=== PATIENT | male | born 1945 | race Caucasian/White ===

== ENCOUNTER 2016-10-06 10:47 | Outpatient (CLI) | payer MEDICARE | END 2016-10-06 10:48 | disposition home or self-care (01) | DX: E78.5 Hyperlipidemia, unspecified (principal); I10 Essential (primary) hypertension; Z79.899 Other long term (current) drug therapy; D64.9 Anemia, unspecified ==

== ENCOUNTER 2017-10-20 08:40 | Outpatient (CLI) | payer MEDICARE ==
[2017-10-20 12:39] LABS: BASOPHILS % (AUTO) 0.3 %; EOSINOPHILS # (AUTO) 0.1 10^3/uL (0.0-0.7); EOSINOPHILS % (AUTO) 2.1 %; HGB - HEMOGLOBIN 13.2 g/dL (14.0-18.0); LYMPHOCYTES # (AUTO) 1.4 10^3/uL (1.5-3.5); LYMPHOCYTES % (AUTO) 30.5 %; MEAN CORPUSCULAR HEMOGLOBIN 31.8 pg (27.0-31.0); MEAN CORPUSCULAR HGB CONC 33.7 g/dL (32.0-36.0); MEAN CORPUSCULAR VOLUME 94.1 fL (80.0-94.0); MEAN PLATELET VOLUME 8.4 fL (7.4-11.4); MONOCYTES # (AUTO) 0.5 10^3/uL (0.0-1.0); MONOCYTES % (AUTO) 11.8 %; NEUTROPHILS # (AUTO) 2.5 10^3/uL (1.5-6.6); NEUTROPHILS % (AUTO) 55.3 %; PLT - PLATELET COUNT 202 10^3/uL (130-450); RED BLOOD COUNT 4.16 10^6/uL (4.70-6.10); RED CELL DISTRIBUTION WIDTH 13.7 % (12.0-15.0); WHITE BLOOD COUNT 4.5 x10^3/uL (4.8-10.8)
[2017-10-20 12:47] LABS: HB2 TOTAL 14.1 g/dL; HEMOGLOBIN A1C 0.53 g/dL; HEMOGLOBIN A1C % 5.6 % (4.6-6.2)
[2017-10-20 12:52] LABS: ALBUMIN 4.4 g/dL (3.2-5.5); ALBUMIN/GLOBULIN RATIO 1.8 (1.0-2.2); ALKALINE PHOSPHATASE 52 IU/L (42-121); ALT ALANINE AMINOTRANSFERASE 21 IU/L (10-60); AST ASPARTATE AMINOTRANSFERASE 25 IU/L (10-42); BILIRUBIN,TOTAL 0.8 mg/dL (0.2-1.0); BUN - BLOOD UREA NITROGEN 34 mg/dL (6-20); CALCIUM 8.8 mg/dL (8.5-10.3); CARBON DIOXIDE - CO2 28 mmol/L (21-32); CHLORIDE 102 mmol/L (101-111); CHOL/HDL RATIO 3.1 (<5.0); CHOLESTEROL 175 mg/dL; CREATININE 0.8 mg/dL (0.6-1.2); GFR - MDRD 96 (>89); GLUCOSE 102 mg/dL (70-100); HDL CHOLESTEROL 57 mg/dL; LDL CHOLESTEROL,CALCULATED 108 mg/dL; LDL/HDL RATIO 1.9 (<3.6); SODIUM 140 mmol/L (135-145); TOTAL PROTEIN 6.9 g/dL (6.7-8.2); VLDL CHOLESTEROL 10 mg/dL
== END 2017-10-20 08:41 | disposition home or self-care (01) ==
LOC: LAB.N 08:40
PROVIDERS: ATTEND Internal Medicine
DX: D64.9 Anemia, unspecified (principal); I10 Essential (primary) hypertension; E78.5 Hyperlipidemia, unspecified; R73.01 Impaired fasting glucose; Z12.5 Encounter for screening for malignant neoplasm of prostate
CPT/HCPCS: 36415; 80053; 80061; 83036; 85025; G0103; 83721; 84153

== ENCOUNTER 2018-11-03 08:00 | Outpatient (CLI) | payer MEDICARE ==
[2018-11-03 13:23] LABS: BASOPHILS % (AUTO) 0.4 %; EOSINOPHILS # (AUTO) 0.1 10^3/uL (0.0-0.7); EOSINOPHILS % (AUTO) 1.2 %; LYMPHOCYTES % (AUTO) 25.5 %; MEAN CORPUSCULAR HEMOGLOBIN 31.5 pg (27.0-31.0); MEAN CORPUSCULAR HGB CONC 33.7 g/dL (32.0-36.0); MEAN CORPUSCULAR VOLUME 93.4 fL (80.0-94.0); MEAN PLATELET VOLUME 8.1 fL (7.4-11.4); MONOCYTES # (AUTO) 0.7 10^3/uL (0.0-1.0); MONOCYTES % (AUTO) 17.1 %; NEUTROPHILS # (AUTO) 2.3 10^3/uL (1.5-6.6); NEUTROPHILS % (AUTO) 55.8 %; PLT - PLATELET COUNT 196 10^3/uL (130-450); RED BLOOD COUNT 4.44 10^6/uL (4.70-6.10); RED CELL DISTRIBUTION WIDTH 13.2 % (12.0-15.0); WHITE BLOOD COUNT 4.1 x10^3/uL (4.8-10.8)
[2018-11-03 13:51] LABS: ALBUMIN 4.6 g/dL (3.2-5.5); ALBUMIN/GLOBULIN RATIO 1.6 (1.0-2.2); ALKALINE PHOSPHATASE 61 IU/L (42-121); ALT ALANINE AMINOTRANSFERASE 21 IU/L (10-60); AST ASPARTATE AMINOTRANSFERASE 26 IU/L (10-42); BUN - BLOOD UREA NITROGEN 21 mg/dL (6-20); CALCIUM 9.3 mg/dL (8.5-10.3); CARBON DIOXIDE - CO2 32 mmol/L (21-32); CHLORIDE 94 mmol/L (101-111); CHOLESTEROL 178 mg/dL; CREATININE 0.8 mg/dL (0.6-1.2); GFR - MDRD 96 (>89); GLUCOSE 102 mg/dL (70-100); HDL CHOLESTEROL 60 mg/dL; LDL CHOLESTEROL,CALCULATED 106 mg/dL; LDL/HDL RATIO 1.8 (<3.6); SODIUM 138 mmol/L (135-145); TOTAL PROTEIN 7.5 g/dL (6.7-8.2); VLDL CHOLESTEROL 12 mg/dL
== END 2018-11-03 23:59 | disposition home or self-care (01) ==
LOC: LAB.R 08:00
PROVIDERS: ATTEND Internal Medicine
DX: D64.9 Anemia, unspecified (principal); R73.01 Impaired fasting glucose; I10 Essential (primary) hypertension; E78.5 Hyperlipidemia, unspecified
CPT/HCPCS: 80053; 80061; 83721; 85025

== ENCOUNTER 2020-11-22 08:00 | Outpatient (CLI) | payer MEDICARE ==
[2020-11-22 12:57] LABS: HEMOGLOBIN A1c% 5.8 % (4.27-6.07)
[2020-11-22 13:07] LABS: CALCIUM 9.6 mg/dL (8.5-10.3); CREATININE 1.1 mg/dL (0.6-1.2)
[2020-11-22 13:20] LABS: BASOPHILS % (AUTO) 0.5 %; EOSINOPHILS # (AUTO) 0.1 10^3/uL (0.0-0.7); EOSINOPHILS % (AUTO) 1.9 %; LYMPHOCYTES # (AUTO) 1.7 10^3/uL (1.5-3.5); LYMPHOCYTES % (AUTO) 40.3 %; MEAN CORPUSCULAR HEMOGLOBIN 31.3 pg (27.0-31.0); MEAN CORPUSCULAR VOLUME 97.8 fL (80.0-94.0); MEAN PLATELET VOLUME 10.4 fL (7.4-11.4); MONOCYTES # (AUTO) 0.6 10^3/uL (0.0-1.0); MONOCYTES % (AUTO) 14.2 %; NEUTROPHILS # (AUTO) 1.8 10^3/uL (1.5-6.6); NEUTROPHILS % (AUTO) 42.9 %; PLT - PLATELET COUNT 216 10^3/uL (130-450); RED BLOOD COUNT 4.48 10^6/uL (4.70-6.10); RED CELL DISTRIBUTION WIDTH 12.5 % (12.0-15.0); WHITE BLOOD COUNT 4.2 x10^3/uL (4.8-10.8)
[2020-11-22 13:22] LABS: PSA FREE 0.19 ng/mL (0.16-2.81)
[2020-11-22 13:23] LABS: PSA TOTAL 0.35 ng/mL (0.000-2.000)
== END 2020-11-22 23:59 | disposition home or self-care (01) ==
LOC: LAB.WCP 08:00
PROVIDERS: ATTEND Nurse Practitioner
DX: R35.1 Nocturia (principal); D64.9 Anemia, unspecified; R73.01 Impaired fasting glucose
CPT/HCPCS: 36415; 80048; 82607; 83036; 84153; 84154; 85025

== ENCOUNTER 2021-07-12 07:45 | Outpatient (CLI) | payer MEDICARE ==
--- NOTE | 2021-07-12 08:25 | Ultrasound Report ---
PROCEDURE: Aorta Screening INDICATIONS: SCREENING FOR CARDIOVASCULAR DISEASE TECHNIQUE: Real time scanning was performed of the aorta and iliac arteries, with image documentatio n. COMPARISON: None. FINDINGS: Aorta: Proximal aortic diameter measures 2.6 cm. Mid-aorta measures 2.5 cm. Distal aortic diameter is 1.8 cm. Mild atherosclerotic plaques are noted in proximal abdominal aorta. Iliac arteries: Right common iliac artery measures 1.2 cm. Left common iliac artery measures 1.2 cm . IMPRESSION: No abdominal aortic aneurysm. Mild atherosclerotic disease. Reviewed by: Catrachito Garrett MD on 07/12/2021 8:24 AM PDT Approved by: Catrachito Garrett MD on 07/12/2021 8:24 AM PDT Station ID: [id number]
== END 2021-07-12 07:46 | disposition home or self-care (01) ==
LOC: DI 07:45
PROVIDERS: ATTEND Internal Medicine
DX: Z13.6 Encounter for screening for cardiovascular disorders (principal); I70.0 Atherosclerosis of aorta

== ENCOUNTER 2021-11-14 12:50 | Outpatient (CLI) | payer MEDICARE ==
--- NOTE | 2021-11-14 17:31 | MRI Report ---
PROCEDURE: Lumbar Spine W/O INDICATIONS: RADICULOPATHY TECHNIQUE: Noncontrast sagittal T1 spin echo and T2 fast echo, sagittal STIR, axial T1 and T2 fast spin echo thr ough the lumbar spine. In cases with scoliosis, additional coronal T2 fast spin echo may be performe d. COMPARISON: None. FINDINGS: Image quality: Motion artifact is noted. Alignment and Curvature: S-shaped scoliotic curvature is incidentally noted. Bone Marrow: Marrow is of normal overall signal. No acute vertebral body compression fractures. Spinal Cord: Conus medullaris terminates at the L1 level. Visualized cord demonstrates normal signa l and size. Paraspinous Soft Tissues: No paravertebral masses. Age-appropriate lower thoracic degenerative changes are seen. T12-L1: The disc height and disc signal are relatively well-preserved. Mild disc bulge is seen, with a focal disc protrusion involving the left foraminal region. There is moderate left-sided and no sig nificant right-sided neuroforaminal narrowing. The central canal is widely patent. L1-L2: Moderate loss of disc height and signal are seen. At least moderate disc bulge is seen, whi ch is eccentric to the right. Reactive marrow endplate changes are seen, which are on hypointense on T1-weighted and hyperintense T2-weighted imaging, with associated increased STIR signal. These heri ging findings are most consistent with endplate edema (Modic type 1 change). Moderate facet hypertr ophy is seen. Moderate to severe bilateral neuroforaminal narrowing can be seen, right worse than le ft. Compression is seen upon the exiting nerve roots. Moderate central canal narrowing is seen. L2-L3: At least moderate loss of disc height and disc signal can be seen. Bridging anterior osteop hytes are seen. At least moderate disc bulge is seen, which is eccentric to the right. Mild to moder ate facet hypertrophy is seen. There is at least moderate lateral neuroforaminal narrowing seen, righ t worse than left. At least moderate central canal narrowing can be seen at this level. L3-L4: At least moderate loss of disc height and disc signal can be seen. Bridging anterior osteoph ytes are seen. Reactive marrow endplate changes are seen, which are on hypointense on T1-weighted a nd hyperintense T2-weighted imaging, with associated increased STIR signal. These imaging findings a re most consistent with endplate edema (Modic type 1 change). At least moderate disc bulge is seen at this level. At least moderate facet hypertrophy can be seen. There is at least moderate right-side d and moderate to severe left-sided neuroforaminal narrowing. There is a degree of compression seen u az the exiting left L3 nerve root. At least moderate central canal narrowing can be seen at this lev el. L4-L5: At least moderate loss of disc height and disc signal can be seen. Reactive marrow endplate changes are seen, which are hyperintense on T1-weighted and T2-weighted imaging, without significant increased STIR signal. These imaging findings are most consistent with fatty metaplasia (Modic type 2 change). Bridging anterior osteophytes are seen. At least moderate disc bulge is seen at this leve l. Moderate facet hypertrophy is seen. There is moderate to severe bilateral neuroforaminal narrowi ng seen at this level. Compression is seen upon the exiting nerve roots. Moderate to severe central canal narrowing is seen, as on series 701 image 11. L5-S1: The disc height and disc signal are relatively well-preserved. Mild disc bulge is seen, with a mild central disc protrusion. Moderate to prominent facet hypertrophy is seen. There is at least m oderate bilateral neuroforaminal narrowing. Moderate central canal narrowing is seen. IMPRESSION: Multiple levels of lumbar spine degenerative change are seen, which are overall worst at the L4-L5 le se. Reviewed by: Darren Rankin MD on 11/14/2021 4:29 PM AKST Approved by: Darren Rankin MD on 11/14/2021 4:29 PM [place] Station ID: [id number]
== END 2021-11-14 12:51 | disposition home or self-care (01) ==
LOC: DI 12:50
PROVIDERS: ATTEND Internal Medicine
DX: M47.816 Spondylosis without myelopathy or radiculopathy, lumbar region (principal); M51.37 Other intervertebral disc degeneration, lumbosacral region; M47.817 Spondylosis without myelopathy or radiculopathy, lumbosacral region; M51.16 Intervertebral disc disorders with radiculopathy, lumbar region; M48.061 Spinal stenosis, lumbar region without neurogenic claudication

== ENCOUNTER 2022-12-11 09:37 | Outpatient (CLI) | payer MEDICARE ==
--- NOTE | 2022-12-11 10:12 | XRAY Report ---
PROCEDURE: Chest 2 View X-Ray INDICATIONS: COUGH TECHNIQUE: 2 views of the chest were acquired. COMPARISON: None. FINDINGS: Surgical changes and devices: None. Lungs and pleura: No pleural effusions or pneumothorax. Lungs are clear. Mediastinum: Mediastinal contours are normal. Heart size is normal. Bones and chest wall: No suspicious bony abnormalities. Soft tissues appear unremarkable. IMPRESSION: No evidence acute pulmonary process. Reviewed by: Emil Wallis MD on 12/11/2022 10:11 AM PDT Approved by: Emil Wallis MD on 12/11/2022 10:11 AM PDT Station ID: [id number]
== END 2022-12-11 09:38 | disposition home or self-care (01) ==
LOC: DI 09:37
PROVIDERS: ATTEND Physician Assistant
DX: R05.9 Cough, unspecified (principal); R09.89 Other specified symptoms and signs involving the circulatory and respiratory systems

== ENCOUNTER 2023-01-22 16:18 | Outpatient (CLI) | payer MEDICARE | END 2023-01-22 16:19 | disposition home or self-care (01) | LOC: RT 16:18 | PROVIDERS: ATTEND Physician Assistant | DX: R05.9 Cough, unspecified (principal) | CPT/HCPCS: 94010 ==